=== PATIENT | male | born 1985 | race Caucasian/White ===

== ENCOUNTER 2016-08-27 05:23 | Emergency (ER) | payer BC ==
--- NOTE | 2016-08-27 06:52 | DIAGNOSTIC IMAGING REPORT ---
PROCEDURE: CT ABD/PELVIS WITH CONTRAST CLINICAL INDICATION: ABDOMINAL PAIN TECHNIQUE: 125 ml of Isovue 300 were injected intravenously and axial images were obtained of the entire abdomen and pelvis with sagittal and coronal reformations. COMPARISON: None. FINDINGS: ABDOMEN: Lung base are clear. Heart size is normal. Liver, gallbladder, pancreas, spleen, adrenal glands, kidneys (left parapelvic cyst) and aorta are normal. Fluid in the ascending colon with multiple nondilated fluid filled loops of small bowel which may be normal or represent enterocolitis. PELVIS: Normal appendix. There is no pelvic mass, inflammatory changes or free fluid. Osseous structures are unremarkable. IMPRESSION: 1. Findings suggestive of enterocolitis 2. Results discussed with Dr. Ortiz All CT scans at this facility use dose modulation, iterative reconstruction, and/or weight-based dosing when appropriate to reduce radiation dose to as low as reasonably achievable.
--- NOTE | 2016-08-27 07:00 | ED NURSING NOTES ---
Clinical Report - Nurses [facility] [place] [address] 08/27/2016 5:26 [id number] Triage time 05:Aug 27 2016. Acuity: LEVEL 3. Chief Complaint: ABDOMINAL PAIN, NAUSEA and DIARRHEA. 05:38 08/27/16. SEPSIS SCREEN: Sepsis Screen. Negative (no infection suspected/documented). JIL COMA SCORE: Jil Coma Scale: 15- eyes open spontaneously (4); best verbal response- oriented x 4 (5); best motor response- obeys commands (6). --05:38 Patricia Adam R.N. 05:31 08/27/16. BP: 133/75 (large adult cuff) taken on the right arm. HR: 77. RR: 18. O2 saturation: 100% on room air. Temp: 98.1 F (oral). Pain level now: 10/10. --05:38 Patricia Adam R.N. Weight: 104.3 kg stated. Height/Length: 71 inches Per Patient. BMI: 32.1. --05:37 Patricia Adam R.N. Medications None. --05:34 Patricia Adam R.N. Allergies Sulfa Antibiotics. --05:34 Patricia Adam R.N. History Arrived by private vehicle. Historian: patient. Onset. (Monday). He has had nausea and moderate, cramping, sharp, dull, intermittent abdominal pain. The pain is described as generalized and associated with nausea and diarrhea. He has had loose stools. This has occurred numerous times. It has been watery and has been associated with cramps. Last oral intake by patient was dinner. Treatment RN PEDIATRIC ICU: (Immodium 0200 today). SOCIAL HX: Smoker- current status unknown. Alcohol use; consumes one beer, liquor and wine. History of drug use: marijuana. Recently used drugs days ago. (2). No recent travel. No infectious disease exposure. No known contact with a sick individual. ABUSE ASSESSMENT: No report of abuse. --05:38 Patricia Adam R.N. PROBLEMS: no known problems. ADDITIONAL SURGERIES: Shoulder Surgery. --05:34 Patricia Adam R.N. Interventions ID band on patient. To treatment room. --05:38 Patricia Adam R.N. PHYSICAL ASSESSMENT 05:41 08/27/16. Ambulatory to room. Patient gowned. GENERAL / NEURO / PSYCH: Alert. Oriented X 4. Appears in pain. HEENT: Mucous membranes are pink. RESPIRATORY: Respirations not labored. Breath sounds within normal limits. CVS: Normal sinus rhythm noted. Capillary refill less than 2 seconds. GI / : The patient has had nausea. He has loose stools. This has occurred numerous times. Abdominal tenderness diffusely and in the upper and lower abdomen. Guarding present. Guarding present. Hyperactive bowel sounds in all quadrants. SKIN: Skin is warm. --05:41 Patricia Adam R.N. NURSING PROGRESS NOTES 05:40 08/27/2016 Site #1 started via IV in the left antecubital space with an 20g angiocath, with aseptic technique and good blood return; one attempt. Blood drawn: rainbow set. Labeled in the presence of the patient and sent to the lab. Saline lock flushed with 10 mL saline (Started by Treva MIRELES-Student, with Malik Murdock RN supervising). --05:50 Frank Murdock R.N. 05:41 08/27/16. The plan of care for this patient has been created. Monitoring of patient in place. Patient gowned. Head of bed elevated. Reassurance given. Two patient identifiers checked. Call light placed in reach. Side rails up x 1. Bed placed in lowest position. Brakes of bed on. Patient ready for evaluation- chart flagged and ED physician notified. --05:41 Patricia Adam R.N. 06:05 08/27/2016 Started bag #1 1000 mL IV Fluids IV NS (Saline); at 1000 mL/hr over 1 hour(s) via site #1 via dial-a-flow. Allergies verified and confirmed 5 rights. IV patency established. IV site checked: no pain, redness, or swelling. IV flushed thoroughly pre- and post-medication administration. --06:05 Patricia Adam R.N. 06:06 08/27/2016 Zofran (Ondansetron HCl) IVP 4 mg given over 1 minute(s) via site #1. Allergies verified and confirmed 5 rights. IV patency established. IV site checked: no pain, redness, or swelling. IV flushed thoroughly pre- and post-medication administration. IVP given by RN. --06:06 Patricia Adam R.N. 06:08 08/27/16. ( Patient doing fine, worried he will have to run to restroom, explained to patient how to disconnect self from monitor and where restroom is. He denied blanket for comfort measures). --06:08 Patricia Adam R.N. 06:06 08/27/16. BP: 132/75 (large adult cuff) taken on the right arm. HR: 74. RR: 16. O2 saturation: 99% on room air. Pain level now: 09/10. --06:08 Patricia Adam R.N. 06:29 08/27/2016 Zofran IVP Response: no adverse reaction pain is gone now. Symptoms have improved the patient feels better. --06:29 Patricia Adam R.N. Patient transported to radiology by stretcher with [employer]. (06:Aug 27 2016). --06:30 Patricia Adam R.N. Patient returned from radiology by stretcher with [employer]. (06:Aug 27 2016). --06:31 Patricia Adam R.N. 07:02 08/27/2016 Levaquin (Levofloxacin) PO Tablets 750 mg given. Allergies verified and confirmed 5 rights. --07:02 Patricia Adam R.N. 07:11 08/27/2016 IV Fluids IV NS Discontinued: bag #1 completed upon discharge. Total amount infused: 1000 mL. --07:11 Patricia Adam R.N. DISPOSITION / DISCHARGE 07:10 08/27/2016 Site #1 removed upon discharge. Bandaid applied. --07:10 Patricia Adam R.N. Departure time: 07:Aug 27 2016. Condition at departure: improved. No learning barriers present. Discharge instructions provided and reviewed with the patient. Reviewed medication(s) side effects, precautions, dosing and course information. Prescription(s) given to the patient. Patient verbalized understanding. Written instructions provided in Croatian. The patient was discharged by the physician. He was discharged home and accompanied by spouse. He left the Emergency Department ambulatory and via private vehicle. Spouse driving. --07:10 Patricia Adam R.N. 07:07 08/27/16. BP: 129/71 (large adult cuff) taken on the right arm. HR: 70. RR: 18. O2 saturation: 99% on room air. Temp: 97.5 F (oral). Pain level now: 08/10. --07:10 Patricia Adam R.N. Locked/Released at 08/27/2016 7:11 by Patricia Adam R.N.
--- NOTE | 2016-08-27 07:00 | ED ORDER SUMMARY ---
..... Patient: KIMBER PALOMINO OrderSheet [facility] VisitID: [id number] [place] [address] 30y, M Registration Date/Time: 08/27/2016 ORDER SHEET Weight: 104.3 kg (stated) Allergies: Sulfa Antibiotics GENERAL ORDERS: CT Abd/Pel w Cont (No) (N/A) Urgent (05:53 08/27/2016 Gretchen Amado) (Ack 5:59 CHagerty ER Pocket Setter) (6:34 JSanders R.N.) CBC w Diff Urgent (05:53 08/27/2016 Gretchen Amado) (Ack 5:59 Jb ER Pocket Setter) (6:00 JSanders R.N.) CMP Urgent (05:53 08/27/2016 Gretchen Amado) (Ack 5:59 CHaglynda ER Pocket Setter) (6:00 JSanders R.N.) UA-Culture if indicated Urgent (05:53 08/27/2016 Gretchen Amado) (Ack 5:59 CHaglynda ER Pocket Setter) (6:00 JSanders R.N.) Lipase Urgent (05:53 08/27/2016 Gretchen Amado) (Ack 5:59 CHagerty ER Pocket Setter) (6:00 JSanders R.N.) Pulse oximeter (05:53 08/27/2016 Gretchen Amado) (6:00 JSanders R.N.) MEDICATION ORDERS: Levaquin PO 750 mg (NOW) (06:51 08/27/2016 Gretchen Amado) (7:02 JSanders R.N.) IV FLUIDS: IV NS : initial bolus 1000 mL (1000 mL/hr), then none - for X1 (NOW) (05:52 08/27/2016 Gretchen Amado) (Ack 6:00 JSanders R.N.) (6:05 JSanders R.N.) Zofran IV 4 mg (NOW) (05:53 08/27/2016 Gretchen Amado) (Ack 6:00 JSanders R.N.) (6:06 JSanders R.N.) ORDER SHEET NOTES: [Electronically signed by Patricia Adam R.N. (07:11 08/27/2016)] [Electronically signed by Neymar Ortiz Dr. (06:09 08/30/2016)] [Electronically locked/signed by Patricia Adam R.N. (07:11 08/27/2016)]
--- NOTE | 2016-08-27 07:00 | ED NURSING NOTES ---
Clinical Report - Nurses [facility] [place] [address] 08/27/2016 5:26 [id number] TRI[facility] Triage time 05:Aug 27 2016. Acuity: LEVEL 3. Chief Complaint: ABDOMINAL PAIN, NAUSEA and DIARRHEA. 05:38 08/27/16. SEPSIS SCREEN: Sepsis Screen. Negative (no infection suspected/documented). JIL COMA SCORE: Jil Coma Scale: 15- eyes open spontaneously (4); best verbal response- oriented x 4 (5); best motor response- obeys commands (6). --05:38 Patricia Adam R.N. 05:31 08/27/16. BP: 133/75 (large adult cuff) taken on the right arm. HR: 77. RR: 18. O2 saturation: 100% on room air. Temp: 98.1 F (oral). Pain level now: 10/10. --05:38 Patricia Adam R.N. Weight: 104.3 kg stated. Height/Length: 71 inches Per Patient. BMI: 32.1. --05:37 Patricia Adam R.N. Medications None. --05:34 Patricia Adam R.N. Allergies Sulfa Antibiotics. --05:34 Patricia Adam R.N. History Arrived by private vehicle. Historian: patient. Onset. (Monday). He has had nausea and moderate, cramping, sharp, dull, intermittent abdominal pain. The pain is described as generalized and associated with nausea and diarrhea. He has had loose stools. This has occurred numerous times. It has been watery and has been associated with cramps. Last oral intake by patient was dinner. Treatment PUBLIC HEALTH DIRECTOR: (Immodium 0200 today). SOCIAL HX: Smoker- current status unknown. Alcohol use; consumes one beer, liquor and wine. History of drug use: marijuana. Recently used drugs days ago. (2). No recent travel. No infectious disease exposure. No known contact with a sick individual. ABUSE ASSESSMENT: No report of abuse. --05:38 Patricia Adam R.N. PROBLEMS: no known problems. ADDITIONAL SURGERIES: Shoulder Surgery. --05:34 Patricia Adam R.N. Interventions ID band on patient. To treatment room. --05:38 Patricia Adam R.N. PHYSICAL ASSESSMENT 05:41 08/27/16. Ambulatory to room. Patient gowned. GENERAL / NEURO / PSYCH: Alert. Oriented X 4. Appears in pain. HEENT: Mucous membranes are pink. RESPIRATORY: Respirations not labored. Breath sounds within normal limits. CVS: Normal sinus rhythm noted. Capillary refill less than 2 seconds. GI / : The patient has had nausea. He has loose stools. This has occurred numerous times. Abdominal tenderness diffusely and in the upper and lower abdomen. Guarding present. Guarding present. Hyperactive bowel sounds in all quadrants. SKIN: Skin is warm. --05:41 Patricia Adam R.N. NURSING PROGRESS NOTES 05:40 08/27/2016 Site #1 started via IV in the left antecubital space with an 20g angiocath, with aseptic technique and good blood return; one attempt. Blood drawn: rainbow set. Labeled in the presence of the patient and sent to the lab. Saline lock flushed with 10 mL saline (Started by Treva MIRELES-Student, with Malik Murdock RN supervising). --05:50 Frank Murdock R.N. 05:41 08/27/16. The plan of care for this patient has been created. Monitoring of patient in place. Patient gowned. Head of bed elevated. Reassurance given. Two patient identifiers checked. Call light placed in reach. Side rails up x 1. Bed placed in lowest position. Brakes of bed on. Patient ready for evaluation- chart flagged and ED physician notified. --05:41 Patricia Adam R.N. 06:05 08/27/2016 Started bag #1 1000 mL IV Fluids IV NS (Saline); at 1000 mL/hr over 1 hour(s) via site #1 via dial-a-flow. Allergies verified and confirmed 5 rights. IV patency established. IV site checked: no pain, redness, or swelling. IV flushed thoroughly pre- and post-medication administration. --06:05 Patricia Adam R.N. 06:06 08/27/2016 Zofran (Ondansetron HCl) IVP 4 mg given over 1 minute(s) via site #1. Allergies verified and confirmed 5 rights. IV patency established. IV site checked: no pain, redness, or swelling. IV flushed thoroughly pre- and post-medication administration. IVP given by RN. --06:06 Patricia Adam R.N. 06:08 08/27/16. ( Patient doing fine, worried he will have to run to restroom, explained to patient how to disconnect self from monitor and where restroom is. He denied blanket for comfort measures). --06:08 Patricia Adam R.N. 06:06 08/27/16. BP: 132/75 (large adult cuff) taken on the right arm. HR: 74. RR: 16. O2 saturation: 99% on room air. Pain level now: 09/10. --06:08 Patricia Adam R.N. 06:29 08/27/2016 Zofran IVP Response: no adverse reaction pain is gone now. Symptoms have improved the patient feels better. --06:29 Patricia Adam R.N. Patient transported to radiology by stretcher with [employer]. (06:Aug 27 2016). --06:30 Patricia Adam R.N. Patient returned from radiology by stretcher with [employer]. (06:Aug 27 2016). --06:31 Patricia Adam R.N. 07:02 08/27/2016 Levaquin (Levofloxacin) PO Tablets 750 mg given. Allergies verified and confirmed 5 rights. --07:02 Patricia Adam R.N. 07:11 08/27/2016 IV Fluids IV NS Discontinued: bag #1 completed upon discharge. Total amount infused: 1000 mL. --07:11 Patricia Adam R.N. DISPOSITION / DISCHARGE 07:10 08/27/2016 Site #1 removed upon discharge. Bandaid applied. --07:10 Patricia Adam R.N. Departure time: 07:Aug 27 2016. Condition at departure: improved. No learning barriers present. Discharge instructions provided and reviewed with the patient. Reviewed medication(s) side effects, precautions, dosing and course information. Prescription(s) given to the patient. Patient verbalized understanding. Written instructions provided in Albanian. The patient was discharged by the physician. He was discharged home and accompanied by spouse. He left the Emergency Department ambulatory and via private vehicle. Spouse driving. --07:10 Patricia Adam R.N. 07:07 08/27/16. BP: 129/71 (large adult cuff) taken on the right arm. HR: 70. RR: 18. O2 saturation: 99% on room air. Temp: 97.5 F (oral). Pain level now: 08/10. --07:10 Patricia Adam R.N. Locked/Released at 08/27/2016 7:11 by Patricia Adam R.N.
--- NOTE | 2016-08-27 07:00 | ED CLINICAL REPORT ---
Clinical Report - Physicians/Mid Levels [facility] [address] [place] [address] 08/27/2016 5:26 Patient: KIMBER PALOMINO Time Seen: 0535; initial patient contact. Arrived- By private vehicle. Historian- patient. HISTORY OF PRESENT ILLNESS Chief Complaint: VOMITING and DIARRHEA. This started about a week and is still present (unchanged). It was abrupt in onset and has been constant but is not gone now. No recent travel. He has had nausea, vomiting and diarrhea. No black stools, bloody stools, constipation, flank pain or history of possible bad food exposure. No known contact with a sick individual. He has had moderate, crampy, colicky abdominal pain. The pain is described as generalized. No radiation of abdominal pain to the back. Has not recently been camping or on antibiotics. The illness is described as severe. Similar symptoms previously: None. Recent medical care: The patient was seen recently in a clinic (states he was told his C. diff and giardia was negative). REVIEW OF SYSTEMS No skin rash. All systems otherwise negative, except as recorded above. PAST HISTORY See nurses notes. Problems: no known problems. Medications: None. Allergies: Sulfa Antibiotics. SOCIAL HISTORY Never smoker. History of occasional drug use: marijuana. No alcohol use. No recent travel. Is a local resident. ADDITIONAL NOTES The nursing notes have been reviewed. PHYSICAL EXAM Vital Signs: 08/27/2016 05:31 BP: 133/75. HR: 77. RR: 18. O2 saturation: 100%. Temp: 98.1 F. Pain level now: 7/10. Blood pressure normal. Oxygen saturation normal. Appearance: Alert. Oriented X3. No acute distress. (Well-developed, well-nourished. Pleasant, cooperative, not nontoxic). Eyes: Pupils equal, round and reactive to light. Eyes normal inspection. No conjunctival findings, pale conjunctivae or scleral icterus. ENT: Ears normal. Nose normal. Pharynx normal. Neck: Normal inspection. Neck supple. CVS: Normal heart rate and rhythm. Heart sounds normal. Pulses normal. Respiratory: No respiratory distress. Breath sounds normal. No rales, rhonchi or wheezes. Abdomen: Soft and nontender. (Hyperactive bowel sounds in all 4 quadrants. negative Ha's. No tenderness at McBurney's. No rebound or guarding. No masses.). Skin: Skin warm and dry. Normal skin color. No rash. Normal skin turgor. Extremities: Extremities exhibit normal ROM. No lower extremity edema. LABS, X-RAYS, AND EKG Laboratory Tests: UA-Culture if indicated: (TRACIE: 08/27/2016 05:35) ( [facility] 08/27/2016 06:09) Final results Test Result Flag Units (Reference) URINE COLOR YELLOW URINE APPEARANCE CLEAR URINE GLUCOSE NEGATIVE (NEGATIVE) URINE BILIRUBIN NEGATIVE (NEGATIVE) URINE KETONE TRACE (NEGATIVE) URINE SPECIFIC GRAVITY 1.010 (1.010-1.030) URINE PH 6.0 (5.0-8.0) URINE PROTEIN NEGATIVE (NEGATIVE) URINE UROBILINOGEN 0.2 EU/dL (0.2-1.0) URINE NITRITE NEGATIVE (NEGATIVE) URINE BLOOD NEGATIVE (NEGATIVE) URINE LEUK ESTERASE NEGATIVE (NEGATIVE) URINE RBC 0-1 rbc/hpf (0-1) URINE WBC 0-1 wbc/hpf (0-1) URINE EPITHELIAL CELLS 0-1 EPI/hpf (0-5) URINE BACTERIA NONE SEEN (NONE SEEN) URINE COMMENT CULT NOT INDICATED URINE CULTURES ARE SET-UP BASED ON THE FOLLOWING CRITERIA:POSITIVE NITRITEPOSITIVE LEUKOCYTE ESTERASEGREATER THAN 10 WHITE BLOOD CELLSMODERATE (2+) OR GREATER BACTERIA CBC w Diff: (TRACIE: 08/27/2016 05:45) ( [facility] 08/27/2016 06:02) Final results Test Result Flag Units (Reference) WHITE BLOOD COUNT 7.2 K/uL (4.5-11.5) RED BLOOD COUNT 5.46 M/uL (4.50-5.90) HEMOGLOBIN 15.8 gm/dL (13.5-17.5) HEMATOCRIT 47.4 % (41.0-53.0) MEAN CELL VOLUME 87 fL (80-100) MEAN CORPUSCULAR HGB 29 pg (26-34) MEAN CORPUSCULAR HGB CONC 33 g/dL (31-37) RED CELL DISTRIBUTION WIDTH 14.0 % (11.6-14.8) PLATELET COUNT 221 K/uL (150-400) NEUTROPHIL % 61.9 % (50-75) LYMPH % 18.4 L % (25-40) MONO % 17.3 H % (3-14) EOSINOPHIL % 2.1 % (0-4) BASOPHIL % 0.3 % (0-2) CMP: (TRACIE: 08/27/2016 05:45) ( MsgRcvd 08/27/2016 06:12) Final results Test Result Flag Units (Reference) GLUCOSE 87 mg/dL (70-110) BUN 17 mg/dL (7-18) CREATININE 1.2 mg/dL (0.6-1.3) Estimated GFR >60 mL/min Estimated GFR- >60 mL/min Note: Persistent reduction over 3 months in eGFR<60 mL/min/1.73 m2 defines CKD. Patients with eGFR values>=60 mL/min/1.73 m2 may also have CKD if evidence ofpersistent proteinuria. Additional information may be foundat www.kidney.org. SODIUM 138 mmol/L (136-145) POTASSIUM 4.0 mmol/L (3.5-5.1) CHLORIDE 103 mmol/L (98-107) CARBON DIOXIDE 24 mmol/L (21-32) CALCIUM 8.4 L mg/dL (8.5-10.1) TOTAL PROTEIN 7.2 g/dL (6.4-8.2) ALBUMIN 3.4 g/dL (3.3-5.0) BILIRUBIN, TOTAL 0.6 mg/dL (0.0-1.0) ALKALINE PHOSPHATASE 78 U/L (46-116) AST (SGOT) 49 H U/L (15-37) ALT (SGPT) 75 U/L (12-78) LIPASE 156 U/L (73-393) . PROGRESS AND PROCEDURES Course of Care: The patient is a pleasant 30-year-old male presenting for evaluation of nausea vomiting and diarrhea. Patient has a nonfocal abdominal examination. Did not feel patient has a surgical abdomen. Patient will be treated with pain medication as well as hydration and nausea medications and have laboratory studies drawn including a urinalysis. If the patient's abdominal examination changes or worsens throughout his stay here in the emergency department, will consider imaging however do not feel that this would foreign exchange position clerk at this time. Would be concerned for exposing patient to excessive radiation. Patient is agreeable to the treatment and plan. The patient's workup was unremarkable for the findings above. No significant abnormalities noted. Patient without elevation in white blood cell count At 7.2. H&H is normal. Liver enzymes and lipase are also noted to be negative. Because the patient's negative workup here in the emergency department, do not feel patient requires admission to the hospital for the emergency department workup/evaluation. Symptoms had significantly improved since being here in the emergency department. At this time we'll managed conservatively with symptom control. Had a discussion with patient in regards his workup here in the emergency department including diagnosis, home care, follow-up, and return precautions. All questions have been answered. The patient expressed understanding of these instructions and was agreeable to them. Prior to patient's departure from his emergency department his repeat abdominal examination continues to be benign. Do not feel patient has a surgical abdomen. Disposition: Discharged. Condition: good. CLINICAL IMPRESSION Vomiting with nausea. Diarrhea (acute). Acute generalized abdominal pain. INSTRUCTIONS Warnings: GENERAL WARNINGS: Return or contact your physician immediately if your condition worsens or changes unexpectedly, if not improving as expected, or if other problems arise. SPECIFICALLY, return if you develop pain, fever, vomiting, the inability to keep fluids down, blood in vomitus, blood in diarrhea, fainting or lightheadedness. Your Current Medications: CONTINUE TAKING THE FOLLOWING MEDICATIONS: None*. Prescription Medications: Zofran (orally disintegrating tablets) 4 mg: take 1 orally every 8 hours as needed for nausea and vomiting. Dispense ten (10). No refill. Substitution is permissible. Cipro 500 mg: take 1 tab orally every 12 hours for 5 days. No refills. Substitution is permissible. (disp 10 tabs) Follow-up: Return to the emergency department as needed. Follow up with your doctor in three days. Reason for referral: recheck today's concerns. Summary of care provided to patient via paper. Screening today revealed the patient's blood pressure to be in the normal range. The patient should follow up with a primary care provider for blood pressure management. Understanding of the discharge instructions verbalized by patient. (Electronically signed by Neymar Ortiz Dr. 08/30/2016 6:09)
--- NOTE | 2016-08-27 07:00 | ED ORDER SUMMARY ---
..... Patient: KIMBER PALOMINO OrderSheet [facility] VisitID: [id number] [place] [address] 30y, M Registration Date/Time: 08/27/2016 ORDER SHEET Weight: 104.3 kg (stated) Allergies: Sulfa Antibiotics GENERAL ORDERS: CT Abd/Pel w Cont (No) (N/A) Urgent (05:53 08/27/2016 Gretchen Amado) (Ack 5:59 CHagerty ER Toaster Element Repairer) (6:34 JSanders R.N.) CBC w Diff Urgent (05:53 08/27/2016 Gretchen Amado) (Ack 5:59 Jb ER Toaster Element Repairer) (6:00 JSanders R.N.) CMP Urgent (05:53 08/27/2016 Gretchen Amado) (Ack 5:59 CHaglynda ER Toaster Element Repairer) (6:00 JSanders R.N.) UA-Culture if indicated Urgent (05:53 08/27/2016 Gretchen Amado) (Ack 5:59 CHaglnyda ER Toaster Element Repairer) (6:00 JSanders R.N.) Lipase Urgent (05:53 08/27/2016 Gretchen Amado) (Ack 5:59 CHagerty ER Toaster Element Repairer) (6:00 JSanders R.N.) Pulse oximeter (05:53 08/27/2016 Gretchen Amado) (6:00 JSanders R.N.) MEDICATION ORDERS: Levaquin PO 750 mg (NOW) (06:51 08/27/2016 Gretchen Amado) (7:02 JSanders R.N.) IV FLUIDS: IV NS : initial bolus 1000 mL (1000 mL/hr), then none - for X1 (NOW) (05:52 08/27/2016 Gretchen Amado) (Ack 6:00 JSanders R.N.) (6:05 JSanders R.N.) Zofran IV 4 mg (NOW) (05:53 08/27/2016 Gretchen Amado) (Ack 6:00 JSanders R.N.) (6:06 JSanders R.N.) ORDER SHEET NOTES: [Electronically signed by Patricia Adam R.N. (07:11 08/27/2016)] [Electronically signed by Neymar Ortiz Dr. (06:09 08/30/2016)] [Electronically locked/signed by Patricia Adam R.N. (07:11 08/27/2016)]
--- NOTE | 2016-08-30 06:09 | ED MED RECONCILIATION SUMMARY ---
Patient: KIMBER PALOMINO Medication Reconciliation Report [facility] VisitID: [id number] [address] [place] [address] 30y, M Registration Date/Time: 08/27/2016 Weight: 104.3 kg Height/Length: 71 in. BMI: 32.1 ALLERGIES: Sulfa Antibiotics The patient's Home Medications are listed below: NONE. The source(s) of the original Home Medication information: Not obtained. The following Medications were given to the patient in the Emergency Department: IV NS IV Fluids bolus 0, then 1000 mL/hr, administered: 08/27/2016 6:05:00 AM Zofran [IVP] IVP 4 mg, administered: 08/27/2016 6:06:00 AM Levaquin [PO] PO 750 mg, administered: 08/27/2016 7:02:00 AM The following Medications were prescribed to the patient: Zofran (orally disintegrating tablets) 4 mg: take 1 orally every 8 hours as needed for nausea and vomiting. Dispense ten (10). No refill. Substitution is permissible. -- Neymar Ortiz Dr. Cipro 500 mg: take 1 tab orally every 12 hours for 5 days. No refills. Substitution is permissible.(disp 10 tabs) -- Neymar Ortiz Dr.
--- NOTE | 2016-08-30 06:09 | ED DISCHARGE INSTRUCTIONS ---
Patient: KIMBER PALOMINO General Instructions [facility] VisitID: [id number] [place] [address] 30y, M Registration Date/Time: 08/27/2016 Vomiting with nausea. Diarrhea (acute). Acute generalized abdominal pain. INSTRUCTIONS Warnings: GENERAL WARNINGS: Return or contact your physician immediately if your condition worsens or changes unexpectedly, if not improving as expected, or if other problems arise. SPECIFICALLY, return if you develop pain, fever, vomiting, the inability to keep fluids down, blood in vomitus, blood in diarrhea, fainting or lightheadedness. Your Current Medications: CONTINUE TAKING THE FOLLOWING MEDICATIONS: None*. Prescription Medications: Zofran (orally disintegrating tablets) 4 mg: take 1 orally every 8 hours as needed for nausea and vomiting. Dispense ten (10). No refill. Substitution is permissible. Cipro 500 mg: take 1 tab orally every 12 hours for 5 days. No refills. Substitution is permissible. (disp 10 tabs) Follow-up: Return to the emergency department as needed. Follow up with your doctor in three days. Reason for referral: recheck today's concerns. Summary of care provided to patient via paper. Screening today revealed the patient's blood pressure to be in the normal range. The patient should follow up with a primary care provider for blood pressure management. Understanding of the discharge instructions verbalized by patient. ADDITIONAL INFORMATION Vomiting [6Yr-Adult] Vomiting is a common symptom that may be due to different causes. These include gastroenteritis ("stomach flu"), food poisoning and gastritis. There are other more serious causes of vomiting which may be hard to diagnose early in the illness. Therefore, it is important to watch for the warning signs listed below. The main danger from repeated vomiting is dehydration. This is due to excess loss of water and minerals from the body. When this occurs, body fluids must be replaced. Home Care: If symptoms are severe, rest at home for the next 24 hours. You may use acetaminophen (Tylenol) or ibuprofen (Motrin, Advil) to control fever, unless another medicine was prescribed. [NOTE : If you have chronic liver or kidney disease or ever had a stomach ulcer or GI bleeding, talk with your doctor before using these medicines.] (Aspirin should never be used in anyone under 18 years of age who is ill with a fever. It may cause severe liver damage.) Avoid tobacco and alcohol use, which may worsen your symptoms. If medicines for vomiting were prescribed, take as directed. Once vomiting stops, then follow these guidelines: During The First 12-24 Hours follow the diet below: FRUIT JUICES: Apple, grape juice, clear fruit drinks, and electrolyte replacement drinks. BEVERAGES: Soft drinks without caffeine; mineral water (plain or flavored), decaffeinated tea and coffee. SOUPS: Clear broth, consomm and bouillon DESSERTS: Plain gelatin, popsicles and fruit juice bars. As you feel better, you may add 6-8 ounces of yogurt per day. During The Next 24 Hours you may add the following to the above: Hot cereal, plain toast, bread, rolls, crackers Plain noodles, rice, mashed potatoes, chicken noodle or rice soup Unsweetened canned fruit (avoid pineapple), bananas Limit caffeine and chocolate. No spices or seasonings except salt. During The Next 24 Hours Gradually resume a normal diet, as you feel better and your symptoms lessen. Follow Up with your doctor as advised if you are not improving over the next 2-3 days. Get Prompt Medical Attention if any of the following occur: Constant right-sided lower abdominal pain or increasing general abdominal pain Continued vomiting (unable to keep liquids down) for 24 hours Frequent diarrhea (more than 5 times a day); blood (red or black color) or mucus in diarrhea Reduced urine output or extreme thirst Weakness, dizziness or fainting Unusually drowsy or confused Fever of 100.4F (38C) oral or higher, not better with fever medication Yellow color of the eyes or skin Diarrhea, Uncertain Cause (Adult, Report Pending) Diarrhea has several possible causes. Commonstomach fluis caused by a virus. Food poisoning, bacteria or parasites are other causes for diarrhea. Only diarrhea caused by bacteria or parasites requires treatment with an antibiotic. Diarrhea from a virus or food poisoning improves with simple home treatment. A stool sample is needed to make the diagnosis of an infection with bacteria or parasites. Up to three stool specimens may be required to diagnose This may take up to two days to get the result. It may be necessary to wait until the stool test is complete to make the diagnosis and select the best antibiotic to prescribe. Home Care: If symptoms are severe, rest at home for the next 24 hours or until you are feeling better. You may use acetaminophen (Tylenol) or ibuprofen (Motrin, Advil) to control fever, unless another medicine was prescribed. [NOTE: If you have chronic liver or kidney disease or ever had a stomach ulcer or GI bleeding, talk with your doctor before using these medicines.] (Aspirin should never be used in anyone under 18 years of age who is ill with a fever. It may cause severe liver damage.) Avoid tobacco, caffeine and alcohol, which may worsen your symptoms. If anti-diarrhea medicine was prescribed, take this only as directed. Sometimes anti-diarrhea medicine can make your condition worse if the cause is an infectious diarrhea. Therefore, anti-diarrhea medicine should not be taken for this condition unless advised by your doctor. During The First 12-24 Hours follow the diet below: BEVERAGES: Sport drinks like Gatorade, soft drinks without caffeine; angie cornelia, mineral water (plain or flavored), decaffeinated tea and coffee. SOUPS: Clear broth, consomm and bouillon DESSERTS: Plain gelatin (Jell-O), popsicles and fruit juice bars. During The Next 24 Hours you may add the following to the above: Hot cereal, plain toast, bread, rolls, crackers Plain noodles, rice, mashed potatoes, chicken noodle or rice soup Unsweetened canned fruit (avoid pineapple), bananas Limit fat intake to less than 15 grams per day by avoiding margarine, butter, oils, mayonnaise, sauces, gravies, fried foods, peanut butter, meat, poultry and fish. Limit fiber; avoid raw or cooked vegetables, fresh fruits (except bananas) and bran cereals. Limit caffeine and chocolate. No spices or seasonings except salt. During The Next 24 Hours Gradually resume a normal diet, as you feel better and your symptoms lessen. Follow Up with your doctor or as advised if you are not improving over the next two days. If you were asked to bring a specimen from home, bring the sample on the day of collection. You may call in 2 days (or as directed) for the results. Get Prompt Medical Attention if any of the following occur: Increasing abdominal pain or constant lower right abdominal pain Continued vomiting (unable to keep liquids down) Frequent diarrhea (more than 5 times a day) Blood in vomit or stool (black or red color) Reduced oral intake Dark urine, reduced urine output Weakness, dizziness, fainting Drowsiness, confusion, stiff neck or seizure Fever of 100.4F (38C) oral or higher, not better with fever medication New rash Abdominal Pain,Uncertain Cause [Male] Based on your visit today, the exact cause of your abdominalpain is not clear. Your exam and tests do not indicate a dangerous cause at this time. However, the signs of a serious problem may take more time to appear. Although your evaluation was reassuring today, sometimes early in the course of many conditions, exam and lab tests can appear normal. Therefore, it is important for you to watch for any new symptoms or worsening of your condition. Causes It may not be obvious what caused your symptoms. Pay attention to things that do seem to make your symptoms worse or better and discuss this with your doctor when you follow up. Diagnosis The evaluation of abdominal pain in the emergency department may onlyrequire an exam by the doctor or it may include blood, urine or imaging studies, depending on many factors. Sometimes exams and tests can identify a cause but in many cases, a clear cause is not found. Further testing at follow up visits may help to suggest a clear diagnosis. Home Care Rest as much as possible until your next exam. Try to avoid any medications (unless otherwise directed by your doctor), foods, activities, or other factors that you may have contributed to your symptoms. Try to eat foods that you know that you have tolerated well in the past. Certain diets may be recommended for some conditions that cause abdominal pain. However, since the cause of your symptoms may not be clear, discuss your diet more with your primary care provider or specialist for further recommendations. Eating several small meals per day as opposed to 2 or 3 larger meals may help. Monitor closely for anything that may make your symptoms worse or better. Pay close attention to symptoms below that may indicate worsening of your condition. Follow Up and Precautions See your doctoras instructed or sooneror if your symptoms are not improving.In some cases, you may need more testing. When to Seek Medical Attention Contact your doctor or see medical attention ifany of the following occur: Pain is becoming worse You are unable to take your medications due to excessive vomiting Swelling of the abdomen Fever of 100.4F (38C) or higher, or as directed by your health care provider Blood in vomit or bowel movements (dark red or black color) Jaundice (yellow color of eyes and skin) New onset of weakness, dizziness or fainting New onset of chest, arm, back, neck or jaw pain Ondansetron Oral disintegrating tablet What is this medicine? ONDANSETRON (on ARELY se serenity) is used to treat nausea and vomiting caused by chemotherapy. It is also used to prevent or treat nausea and vomiting after surgery. How should I use this medicine? These tablets are made to dissolve in the mouth. Do not try to push the tablet through the foil backing. With dry hands, peel away the foil backing and gently remove the tablet. Place the tablet in the mouth and allow it to dissolve, then swallow. While you may take these tablets with water, it is not necessary to do so. Talk to your middle school combination teacher regarding the use of this medicine in children. Special care may be needed. What side effects may I notice from receiving this medicine? Side effects that you should report to your doctor or health child care development specialist as soon as possible: allergic reactions like skin rash, itching or hives, swelling of the face, lips, or tongue breathing problems dizziness fast or irregular heartbeat feeling faint or lightheaded, falls fever and chills swelling of the hands and feet tightness in the chest Side effects that usually do not require medical attention (report to your doctor or health child care development specialist if they continue or are bothersome): constipation or diarrhea headache What may interact with this medicine? Do not take this medicine with any of the following medications: -apomorphine -cisapride -dofetilide -dronedarone -pimozide -thioridazine -ziprasidone This medicine may also interact with the following medications: -carbamazepine -phenytoin -rifampicin -tramadol -other medicines that prolong the QT interval (cause an abnormal heart rhythm) What if I miss a dose? If you miss a dose, take it as soon as you can. If it is almost time for your next dose, take only that dose. Do not take double or extra doses. Where should I keep my medicine? Keep out of the reach of children. Store between 2 and 30 degrees C (36 and 86 degrees F). Throw away any unused medicine after the expiration date. What should I tell my health care provider before I take this medicine? They need to know if you have any of these conditions: heart disease history of irregular heartbeat liver disease low levels of magnesium or potassium in the blood an unusual or allergic reaction to ondansetron, granisetron, other medicines, foods, dyes, or preservatives or trying to get breast-feeding What should I watch for while using this medicine? Check with your doctor or health child care development specialist as soon as you can if you have any sign of an allergic reaction. Ciprofloxacin Hydrochloride Oral tablet What is this medicine? CIPROFLOXACIN (sip placido FLOX a sin) is a quinolone antibiotic. It is used to treat certain kinds of bacterial infections. It will not work for colds, flu, or other viral infections. How should I use this medicine? Take this medicine by mouth with a glass of water. Follow the directions on the prescription label. Take your medicine at regular intervals. Do not take your medicine more often than directed. Take all of your medicine as directed even if you think your are better. Do not skip doses or stop your medicine early. You can take this medicine with food or on an empty stomach. It can be taken with a meal that contains dairy or calcium, but do not take it alone with a dairy product, like milk or yogurt or calcium-fortified juice. A special MedGuide will be given to you by the pharmacist with each prescription and refill. Be sure to read this information carefully each time. Talk to your middle school combination teacher regarding the use of this medicine in children. Special care may be needed. What side effects may I notice from receiving this medicine? Side effects that you should report to your doctor or health child care development specialist as soon as possible: - allergic reactions like skin rash, itching or hives, swelling of the face, lips, or tongue - breathing problems - confusion, nightmares or hallucinations - feeling faint or lightheaded, falls - irregular heartbeat - joint, muscle or tendon pain or swelling - pain or trouble passing urine -persistent headache with or without blurred vision - redness, blistering, peeling or loosening of the skin, including inside the mouth - seizure - unusual pain, numbness, tingling, or weakness Side effects that usually do not require medical attention (report to your doctor or health child care development specialist if they continue or are bothersome): - diarrhea - nausea or stomach upset - white patches or sores in the mouth What may interact with this medicine? Do not take this medicine with any of the following medications: cisapride droperidol terfenadine tizanidine This medicine may also interact with the following medications: antacids caffeine cyclosporin didanosine (ddI) buffered tablets or powder medicines for diabetes medicines for inflammation like ibuprofen, naproxen methotrexate multivitamins omeprazole phenytoin probenecid sucralfate theophylline warfarin What if I miss a dose? If you miss a dose, take it as soon as you can. If it is almost time for your next dose, take only that dose. Do not take double or extra doses. Where should I keep my medicine? Keep out of the reach of children. Store at room temperature below 30 degrees C (86 degrees F). Keep container tightly closed. Throw away any unused medicine after the expiration date. What should I tell my health care provider before I take this medicine? They need to know if you have any of these conditions: -bone problems -cerebral disease -joint problems -irregular heartbeat -kidney disease -liver disease -myasthenia gravis -seizure disorder -tendon problems -an unusual or allergic reaction to ciprofloxacin, other antibiotics or medicines, foods, dyes, or preservatives - or trying to get -breast-feeding What should I watch for while using this medicine? Tell your doctor or health child care development specialist if your symptoms do not improve. Do not treat diarrhea with over the counter products. Contact your doctor if you have diarrhea that lasts more than 2 days or if it is severe and watery. You may get drowsy or dizzy. Do not drive, use machinery, or do anything that needs mental alertness until you know how this medicine affects you. Do not stand or sit up quickly, especially if you are an older patient. This reduces the risk of dizzy or fainting spells. This medicine can make you more sensitive to the sun. Keep out of the sun. If you cannot avoid being in the sun, wear protective clothing and use sunscreen. Do not use sun lamps or tanning beds/booths. Avoid antacids, aluminum, calcium, iron, magnesium, and zinc products for 6 hours before and 2 hours after taking a dose of this medicine. You have been given the following additional information: Vomiting (6Y-Adult) Diarrhea, Unk Cause (Adult) Report Pendg Abdominal Pain, Unknown Cause, (Male) Ondansetron Oral disintegrating tablet Ciprofloxacin Hydrochloride Oral tablet (Electronically signed by Neymar Ortiz Dr. 08/30/2016 6:09)
--- NOTE | 2016-08-30 06:09 | ED MAR SUMMARY ---
..... Medication Administration Record [facility] [address] [place] [address] Patient: KIMBER PALOMINO Visit ID: [id number] 30y, M Weight: 104.3 kg Height/Length: 71 in BMI: 32.1 ALLERGIES: Sulfa Antibiotics Start 06:05 08/27/2016 Patricia Adam R.N., Stop 07:11 08/27/2016 Patricia Adam R.N. Medication Administered: IV NS (SALINE), Dose: IV Fluids over 1 hour(s), Rate: 1000 mL/hr, Dispensed: 1000 mL bag, Site: #1 left AC. Medication Ordered: IV NS : initial bolus 1000 mL (1000 mL/hr), then none - for X1 (NOW). Given 06:06 08/27/2016 Patricia Adam R.N. Medication Administered: ZOFRAN [IVP] (ONDANSETRON HCL), Dose: 4 mg IVP over 1 minute(s), Site: #1 left AC. Medication Ordered: Zofran IV 4 mg (NOW). Given 07:02 08/27/2016 Patricia Adam R.N. Medication Administered: LEVAQUIN [PO] (LEVOFLOXACIN), Dose: 750 mg Tablets PO. Medication Ordered: Levaquin PO 750 mg (NOW).
--- NOTE | 2016-08-30 06:09 | ED MAR SUMMARY ---
..... Medication Administration Record [facility] [address] [place] [address] Patient: KIMBER PALOMINO Visit ID: [id number] 30y, M Weight: 104.3 kg Height/Length: 71 in BMI: 32.1 ALLERGIES: Sulfa Antibiotics Start 06:05 08/27/2016 Patricia Adam R.N., Stop 07:11 08/27/2016 Patricia Adam R.N. Medication Administered: IV NS (SALINE), Dose: IV Fluids over 1 hour(s), Rate: 1000 mL/hr, Dispensed: 1000 mL bag, Site: #1 left AC. Medication Ordered: IV NS : initial bolus 1000 mL (1000 mL/hr), then none - for X1 (NOW). Given 06:06 08/27/2016 Patricia Adam R.N. Medication Administered: ZOFRAN [IVP] (ONDANSETRON HCL), Dose: 4 mg IVP over 1 minute(s), Site: #1 left AC. Medication Ordered: Zofran IV 4 mg (NOW). Given 07:02 08/27/2016 Patricia Adam R.N. Medication Administered: LEVAQUIN [PO] (LEVOFLOXACIN), Dose: 750 mg Tablets PO. Medication Ordered: Levaquin PO 750 mg (NOW).
--- NOTE | 2016-08-30 06:09 | ED MED RECONCILIATION SUMMARY ---
Patient: KIMBER PALOMINO Medication Reconciliation Report [facility] VisitID: [id number] [address] [place] [address] 30y, M Registration Date/Time: 08/27/2016 Weight: 104.3 kg Height/Length: 71 in. BMI: 32.1 ALLERGIES: Sulfa Antibiotics The patient's Home Medications are listed below: NONE. The source(s) of the original Home Medication information: Not obtained. The following Medications were given to the patient in the Emergency Department: IV NS IV Fluids bolus 0, then 1000 mL/hr, administered: 08/27/2016 6:05:00 AM Zofran [IVP] IVP 4 mg, administered: 08/27/2016 6:06:00 AM Levaquin [PO] PO 750 mg, administered: 08/27/2016 7:02:00 AM The following Medications were prescribed to the patient: Zofran (orally disintegrating tablets) 4 mg: take 1 orally every 8 hours as needed for nausea and vomiting. Dispense ten (10). No refill. Substitution is permissible. -- Neymar Ortiz Dr. Cipro 500 mg: take 1 tab orally every 12 hours for 5 days. No refills. Substitution is permissible.(disp 10 tabs) -- Neymar Ortiz Dr.
== END 2016-08-27 07:10 | disposition home or self-care (01) ==
LOC: ED SRH 05:23
DX: R11.2 Nausea with vomiting, unspecified (principal); R19.7 Diarrhea, unspecified; R10.84 Generalized abdominal pain; Z88.2 Allergy status to sulfonamides
CPT/HCPCS: 90004; 90100; 92235; 95059

== ENCOUNTER 2016-10-14 23:57 | Emergency (ER) | payer BC ==
--- NOTE | 2016-10-15 01:25 | ED NURSING NOTES ---
Clinical Report - Nurses [facility] [address] [place] [address] 10/15/2016 0:00 [id number] Triage time 00:Oct 15 2016. Acuity: LEVEL 3. Chief Complaint: INJURY TO RIGHT ANKLE. SEPSIS SCREEN: Sepsis Screen: negative. Negative (no infection suspected/documented). JIL COMA SCORE: Jil Coma Scale: 15- eyes open spontaneously (4); best verbal response- oriented x 4 (5); best motor response- obeys commands (6). --00:11 Daisy Wheeler 00:08 10/15/16. BP: 130/78. HR: 90. RR: 20. O2 saturation: 97%. Temp: 98 F (oral). Pain level now: 11/10. --00:11 Daisy Wheeler. Weight: 102 kg stated. Height/Length: 71 inches Per Patient. BMI: 31.4. --00:11 Daisy Wheeler. Medications None. --00:09 Daisy Wheeler. Medication/allergy information source: the patient. --00:11 Daisy Wheeler. Allergies Sulfa Antibiotics. --00:10 Daisy Wheeler. History Arrived by private vehicle. Historian: patient and family. Accompanied by family. Primary physician (none). Occurred at home. Mechanism of injury: a single moderate blow. ( Patient reports he was lifting up his AT/Quad when it landed on his right foot. He reports pain and swelling as well as limited range of motion. He reports he took ibuprofen and waited for swelling to subside but it has not. He reports this happened at home in his garage four hours ago.). He has had trouble walking. PAST MEDICAL HX: Tetanus status: up-to-date. Immunizations: up-to-date. SOCIAL HX: Former smoker, end date 2014 (chews tobacco). Occasional alcohol use. History of drug use: marijuana. No infectious disease exposure. ABUSE ASSESSMENT: No report of abuse. FALL RISK ASSESSMENT: Fall risk assessment completed. No fall risk identified. NUTRITIONAL RISK ASSESSMENT: The nutritional risk assessment revealed no deficiencies. FUNCTIONAL ASSESSMENT: Functional assessment: no impairments noted. LEARNING NEEDS ASSESSMENT: The learning needs assessment revealed no barriers. SKIN INTEGRITY ASSESSMENT: Skin integrity risk assessment completed. No skin integrity risk identified. --00:11 Daisy Wheeler. PROBLEMS: Diarrhea. Vomiting. Abdominal Pain. --00:10 Daisy Wheeler. ADDITIONAL SURGERIES: Shoulder Surgery. --00:10 Daisy Wheeler. Interventions ID band on patient. To treatment room. --00:11 Daisy Wheeler. PHYSICAL ASSESSMENT To room via wheelchair. GENERAL / NEURO / PSYCH: Oriented X 4. Alert. Appears in no acute distress. EXTREMITIES: Limited ROM present. Capillary refill is less than 2 seconds in the extremities. Extremity pulses are within normal limits. Pain with weight bearing. Right ankle: tenderness and swelling. Limited ROM secondary to pain and swelling. SKIN: Skin is warm and dry. --00:11 Daisy Wheeler. NURSING PROGRESS NOTES Cold pack applied. Extremity elevated. Warming measures: blanket applied. Reassurance given to the patient. Two patient identifiers checked. Call light placed in reach. Side rails up x 1. Bed placed in lowest position. Brakes of bed on. Patient ready for evaluation- chart flagged and ED physician notified. --00:12 Daisy Wheeler ( radiology at bedside). --00:35 Daisy Wheeler 01:30 10/15/2016 Hydrocodone-APAP (Hydrocodone-Acetaminophen) PO 5/325 mg Tablets 2 tab given. Allergies verified, confirmed 5 rights and sedative warning given to the patient and patient's family. --01:30 Daisy Wheeler 01:40. Stirrup lower extremity splint applied to right ankle by tech. Distal pulses intact, sensation intact and motor within normal limits. Patient fit with new crutches. Crutch training performed by tech; the patient demonstrated proper use. --01:46 Fernanda Garcia. DISPOSITION / DISCHARGE Condition at departure: stable. The goals identified in the patient's plan of care were met. --01:31 Daisy Wheeler 01:30 10/15/16. BP: 126/75. HR: 90. RR: 20. O2 saturation: 98% on room air. Temp: deferred. Pain level now: 11/10. --01:31 Daisy Wheeler 01:38 10/15/16. No learning barriers present. Discharge instructions provided and reviewed with the patient and spouse. Reviewed warnings (Do not drive while taking sedative medications). Reviewed medication(s) side effects, precautions, dosing and course information. Prescription(s) given to the patient. Reviewed crutch walking and splint care instructions. Reviewed need for increased fluid intake. Patient and spouse verbalized understanding. Written instructions provided in Zambian. ( Ice and elevate the affected extremity. Take anti-inflammatory for swelling. Follow up with [facility] in three days. Contact information provided for [facility]. Limited weight bearing for three days. Patient and spouse verbalized understanding and had no additional questions at this time.). The patient was discharged by the physician. He was discharged home and accompanied by spouse. He left the Emergency Department on crutches and via private vehicle. Spouse driving. --01:38 Daisy Wheeler. Locked/Released at 10/15/2016 2:06 by Daisy Wheeler,
--- NOTE | 2016-10-15 01:25 | ED ORDER SUMMARY ---
..... Patient: KIMBER PALOMINO OrderSheet [facility] VisitID: [id number] [place] [address] 30y, M Registration Date/Time: 10/15/2016 ORDER SHEET Weight: 102.0 kg (stated) Allergies: Sulfa Antibiotics GENERAL ORDERS: Ankle 3 or 4V Right Urgent (00:22 10/15/2016 HSoule per protocol) (Ack 0:28 AMcQuoid ER Tech1) (0:37 GUnger) Splint (LE) (Right) (Air Splint) (01:24 10/15/2016 Fabien GREENE) (Ack 1:24 HSoule) (1:30 HSoule) Crutches (:10/15/2016 Fabien GREENE) (Ack 1:24 HSoule) (1:30 HSoule) MEDICATION ORDERS: Hydrocodone-APAP PO 10/650 mg (NOW) (01:24 10/15/2016 Fabien GREENE) (Ack 1:24 HSoule) (1:30 HSoule) IV FLUIDS: ORDER SHEET NOTES: [Electronically signed by Daisy Wheeler (02:06 10/15/2016)] [Electronically signed by Anthony Tejada MD (20:49 10/18/2016)] [Electronically locked/signed by Daisy Wheeler (02:06 10/15/2016)]
--- NOTE | 2016-10-15 01:25 | ED CLINICAL REPORT ---
Clinical Report - Physicians/Mid Levels [facility] [address] [place] [address] 10/15/2016 0:00 [id number] Time Seen: 01:16 Oct 15 2016. Arrived- By private vehicle. Historian- patient. CPT: ER phys charges level 3 (#[id number]). HISTORY OF PRESENT ILLNESS Chief Complaint: Injury to the right ankle. The injury happened just prior to arrival. The patient sustained a direct blow. Occurred at home. ( Occurred at home. Mechanism of injury: a single moderate blow. ( Patient reports he was lifting up his AT/Quad when it landed on his right foot. He reports pain and swelling as well as limited range of motion. He reports he took ibuprofen and waited for swelling to subside but it has not. He reports this happened at home in his garage four hours ago.). He has had trouble walking.). Patient is experiencing moderate pain. No other injury. REVIEW OF SYSTEMS The patient complains of pain on weight bearing. He has had swelling. No weakness, numbness, suspected foreign body or skin laceration. All systems otherwise negative, except as recorded above. PAST HISTORY See nurses notes. Diarrhea. Vomiting. Abdominal Pain. ADDITIONAL SURGERIES: Shoulder Surgery. Medications: None. Allergies: Sulfa Antibiotics. SOCIAL HISTORY Former smoker. Occasional alcohol use. History of drug use: marijuana. ADDITIONAL NOTES The nursing notes have been reviewed. PHYSICAL EXAM Vital Signs: 10/15/2016 00:08 BP: 130/78. HR: 90. RR: 20. O2 saturation: 97%. Temp: 98 F. Pain level now: 8/10. Appearance: Appears to be in pain. Patient in moderate distress. Head: Head atraumatic. ENT: Pharynx normal. Neck: Normal inspection. C-spine non-tender. CVS: Normal heart rate and rhythm. Heart sounds normal. Pulses normal. Respiratory: No respiratory distress. Breath sounds normal. Chest nontender. Abdomen: No visible injury. Soft and nontender. Bowel sounds normal. Back: No tenderness. Skin: Skin intact. Skin warm. Extremities: Right lateral ankle: tenderness, swelling and ecchymosis of the lateral ligaments and lateral malleolus. Limited ROM secondary to pain (diminished plantar flexion and inversion). Joint effusion present. Neurovascular intact distally. No ligamentous laxity present. No deformity. Gait: Gait not tested due to pain. Neuro, Vascular and Tendons: Vascular status intact. Sensation intact. Motor intact. Neuro: Oriented X 3. No motor deficit. No sensory deficit. LABS, X-RAYS, AND EKG X-Rays: Right ankle negative. PROGRESS AND PROCEDURES Splint Application: Air splint applied to right ankle. Splint applied by tech with direct supervision by me. Reassessed extremity following splint application. Neurovascular intact. Follow-up recommended within 7 days. Fitted for crutches by the tech. Course of Care: Vicodin 2 po Patient is stable. Patient/family counseled. Disposition: Discharged. Condition: stable. CLINICAL IMPRESSION Sprain of the calcaneofibular and talofibular ligament of the right ankle. Contusion to the right ankle. INSTRUCTIONS Apply ice for 15-20 minutes three times a day for one days. Use crutches until better. Wear air splint until released. Elevate affected areas above chest level today, for one days. No weight bearing on right leg for three days until better. Warnings: SEDATIVE MEDICATION: You were given sedative medication during your visit. Do not drive or operate dangerous machinery. Prescription Medications: Hydrocodone/APAP 5mg/325mg: take 1 to 2 orally every 6 hours as needed for pain. Dispense fifteen (15). No refills. Ibuprofen 600mg tablets: take 1 tablet orally every 8 hours as needed for pain. Dispense thirty (30). No refills. Understanding of the discharge instructions verbalized by patient. Discharge instructions reviewed with and understanding was verbalized by software trainer. Follow-up with: [facility], , , [address], , [place], [address] Follow up in one week. Call for an appointment. (Electronically signed by Anthony Tejada MD 10/18/2016 20:49)
--- NOTE | 2016-10-15 01:25 | ED ORDER SUMMARY ---
..... Patient: KIMBER PALOMINO OrderSheet [facility] VisitID: [id number] [place] [address] 30y, M Registration Date/Time: 10/15/2016 ORDER SHEET Weight: 102.0 kg (stated) Allergies: Sulfa Antibiotics GENERAL ORDERS: Ankle 3 or 4V Right Urgent (00:22 10/15/2016 HSoule per protocol) (Ack 0:28 AMcQuoid ER Tech1) (0:37 GUnger) Splint (LE) (Right) (Air Splint) (01:24 10/15/2016 Fabien GREENE) (Ack 1:24 HSoule) (1:30 HSoule) Crutches (:10/15/2016 Fabien GREENE) (Ack 1:24 HSoule) (1:30 HSoule) MEDICATION ORDERS: Hydrocodone-APAP PO 10/650 mg (NOW) (01:24 10/15/2016 Fabien GREENE) (Ack 1:24 HSoule) (1:30 HSoule) IV FLUIDS: ORDER SHEET NOTES: [Electronically signed by Daisy Wheeler (02:06 10/15/2016)] [Electronically signed by Anthony Tejada MD (20:49 10/18/2016)] [Electronically locked/signed by Daisy Wheeler (02:06 10/15/2016)]
--- NOTE | 2016-10-15 01:25 | ED CLINICAL REPORT ---
Clinical Report - Physicians/Mid Levels [facility] [address] [place] [address] 10/15/2016 0:00 [id number] Time Seen: 01:16 Oct 15 2016. Arrived- By private vehicle. Historian- patient. CPT: ER phys charges level 3 (#[id number]). HISTORY OF PRESENT ILLNESS Chief Complaint: Injury to the right ankle. The injury happened just prior to arrival. The patient sustained a direct blow. Occurred at home. ( Occurred at home. Mechanism of injury: a single moderate blow. ( Patient reports he was lifting up his AT/Quad when it landed on his right foot. He reports pain and swelling as well as limited range of motion. He reports he took ibuprofen and waited for swelling to subside but it has not. He reports this happened at home in his garage four hours ago.). He has had trouble walking.). Patient is experiencing moderate pain. No other injury. REVIEW OF SYSTEMS The patient complains of pain on weight bearing. He has had swelling. No weakness, numbness, suspected foreign body or skin laceration. All systems otherwise negative, except as recorded above. PAST HISTORY See nurses notes. Diarrhea. Vomiting. Abdominal Pain. ADDITIONAL SURGERIES: Shoulder Surgery. Medications: None. Allergies: Sulfa Antibiotics. SOCIAL HISTORY Former smoker. Occasional alcohol use. History of drug use: marijuana. ADDITIONAL NOTES The nursing notes have been reviewed. PHYSICAL EXAM Vital Signs: 10/15/2016 00:08 BP: 130/78. HR: 90. RR: 20. O2 saturation: 97%. Temp: 98 F. Pain level now: 8/10. Appearance: Appears to be in pain. Patient in moderate distress. Head: Head atraumatic. ENT: Pharynx normal. Neck: Normal inspection. C-spine non-tender. CVS: Normal heart rate and rhythm. Heart sounds normal. Pulses normal. Respiratory: No respiratory distress. Breath sounds normal. Chest nontender. Abdomen: No visible injury. Soft and nontender. Bowel sounds normal. Back: No tenderness. Skin: Skin intact. Skin warm. Extremities: Right lateral ankle: tenderness, swelling and ecchymosis of the lateral ligaments and lateral malleolus. Limited ROM secondary to pain (diminished plantar flexion and inversion). Joint effusion present. Neurovascular intact distally. No ligamentous laxity present. No deformity. Gait: Gait not tested due to pain. Neuro, Vascular and Tendons: Vascular status intact. Sensation intact. Motor intact. Neuro: Oriented X 3. No motor deficit. No sensory deficit. LABS, X-RAYS, AND EKG X-Rays: Right ankle negative. PROGRESS AND PROCEDURES Splint Application: Air splint applied to right ankle. Splint applied by tech with direct supervision by me. Reassessed extremity following splint application. Neurovascular intact. Follow-up recommended within 7 days. Fitted for crutches by the tech. Course of Care: Vicodin 2 po Patient is stable. Patient/family counseled. Disposition: Discharged. Condition: stable. CLINICAL IMPRESSION Sprain of the calcaneofibular and talofibular ligament of the right ankle. Contusion to the right ankle. INSTRUCTIONS Apply ice for 15-20 minutes three times a day for one days. Use crutches until better. Wear air splint until released. Elevate affected areas above chest level today, for one days. No weight bearing on right leg for three days until better. Warnings: SEDATIVE MEDICATION: You were given sedative medication during your visit. Do not drive or operate dangerous machinery. Prescription Medications: Hydrocodone/APAP 5mg/325mg: take 1 to 2 orally every 6 hours as needed for pain. Dispense fifteen (15). No refills. Ibuprofen 600mg tablets: take 1 tablet orally every 8 hours as needed for pain. Dispense thirty (30). No refills. Understanding of the discharge instructions verbalized by patient. Discharge instructions reviewed with and understanding was verbalized by fur repairer. Follow-up with: [facility], , , [address], , [place], [address] Follow up in one week. Call for an appointment. (Electronically signed by Anthony Tejada MD 10/18/2016 20:49)
--- NOTE | 2016-10-15 06:28 | DIAGNOSTIC IMAGING REPORT ---
PROCEDURE: XR ANKLE 3 OR 4 VIEWS - RIGHT INDICATION: TRAUMA/INJURY TECHNIQUE: Four views. COMPARISON: None. FINDINGS: There is marked soft tissue swelling over the lateral malleolus. Dystrophic ossification along the lateral tibia is most likely related to prior syndesmosis injury. The rest of the osseous structures and joint spaces are normal. IMPRESSION: 1. Marked soft tissue swelling. 2. Dystrophic ossification of the distal fibula may be related to prior syndesmosis injury.
--- NOTE | 2016-10-18 20:50 | ED MAR SUMMARY ---
..... Medication Administration Record [facility] [address] [place] [address] Patient: KIMBER PALOMINO Visit ID: [id number] 30y, M Weight: 102.0 kg Height/Length: 71 in BMI: 31.4 ALLERGIES: Sulfa Antibiotics Given 01:30 10/15/2016 Daisy Wheeler, Medication Administered: HYDROCODONE-APAP [PO] (HYDROCODONE-ACETAMINOPHEN), Dose: 2 tab 5/325 mg Tablets PO. Medication Ordered: Hydrocodone-APAP PO 10/650 mg (NOW).
--- NOTE | 2016-10-18 20:50 | ED MED RECONCILIATION SUMMARY ---
Patient: KIMBER PALOMINO Medication Reconciliation Report [facility] VisitID: [id number] [place] [address] 30y, M Registration Date/Time: 10/15/2016 Weight: 102.0 kg Height/Length: 71 in. BMI: 31.4 ALLERGIES: Sulfa Antibiotics The patient's Home Medications are listed below: NONE. The source(s) of the original Home Medication information: patient The following Medications were given to the patient in the Emergency Department: Hydrocodone-APAP [PO] PO 2 tab, administered: 10/15/2016 1:30:00 AM The following Medications were prescribed to the patient: Hydrocodone/APAP 5mg/325mg: take 1 to 2 orally every 6 hours as needed for pain. Dispense fifteen (15). No refills. -- Anthony Tejada MD Ibuprofen 600mg tablets: take 1 tablet orally every 8 hours as needed for pain. Dispense thirty (30). No refills. -- Anthony Tejada MD
--- NOTE | 2016-10-18 20:50 | ED MAR SUMMARY ---
..... Medication Administration Record [facility] [address] [place] [address] Patient: KIMBER PALOMINO Visit ID: [id number] 30y, M Weight: 102.0 kg Height/Length: 71 in BMI: 31.4 ALLERGIES: Sulfa Antibiotics Given 01:30 10/15/2016 Daisy Wheeler, Medication Administered: HYDROCODONE-APAP [PO] (HYDROCODONE-ACETAMINOPHEN), Dose: 2 tab 5/325 mg Tablets PO. Medication Ordered: Hydrocodone-APAP PO 10/650 mg (NOW).
--- NOTE | 2016-10-18 20:50 | ED MED RECONCILIATION SUMMARY ---
Patient: KIMBER PALOMINO Medication Reconciliation Report [facility] VisitID: [id number] [place] [address] 30y, M Registration Date/Time: 10/15/2016 Weight: 102.0 kg Height/Length: 71 in. BMI: 31.4 ALLERGIES: Sulfa Antibiotics The patient's Home Medications are listed below: NONE. The source(s) of the original Home Medication information: patient The following Medications were given to the patient in the Emergency Department: Hydrocodone-APAP [PO] PO 2 tab, administered: 10/15/2016 1:30:00 AM The following Medications were prescribed to the patient: Hydrocodone/APAP 5mg/325mg: take 1 to 2 orally every 6 hours as needed for pain. Dispense fifteen (15). No refills. -- Anthony Tejada MD Ibuprofen 600mg tablets: take 1 tablet orally every 8 hours as needed for pain. Dispense thirty (30). No refills. -- Anthony Tejada MD
--- NOTE | 2016-10-18 20:50 | ED DISCHARGE INSTRUCTIONS ---
Patient: KIMBER PALOMINO General Instructions [facility] VisitID: [id number] [address], [place] [address] 30y, M Registration Date/Time: 10/15/2016 Sprain of the calcaneofibular and talofibular ligament of the right ankle. Contusion to the right ankle. INSTRUCTIONS Apply ice for 15-20 minutes three times a day for one days. Use crutches until better. Wear air splint until released. Elevate affected areas above chest level today, for one days. No weight bearing on right leg for three days until better. Warnings: SEDATIVE MEDICATION: You were given sedative medication during your visit. Do not drive or operate dangerous machinery. Prescription Medications: Hydrocodone/APAP 5mg/325mg: take 1 to 2 orally every 6 hours as needed for pain. Dispense fifteen (15). No refills. Ibuprofen 600mg tablets: take 1 tablet orally every 8 hours as needed for pain. Dispense thirty (30). No refills. Understanding of the discharge instructions verbalized by patient. Discharge instructions reviewed with and understanding was verbalized by convention services manager. Follow-up with: [facility], , , [address], , [place], [id number] Follow up in one week. Call for an appointment. ADDITIONAL INFORMATION Sprain, Ankle,With X-Ray A sprain is an injury to the ligaments or capsule that holds a joint together. There are no broken bones. Most sprains take from four to six weeks to heal. If the ligament is completely torn (severe sprain), it can take several months to recover. Mild to moderate sprains may be treated with an elastic wrap or an in-shoe splint to provide support and prevent re-injury. A mild sprain may not require any additional support. A severe sprain may require surgery to repair. Home care The following guidelines will help you care for your injury at home: Stay off the injured leg as much as possible until you can walk on it without pain. If you have a lot of pain with walking, crutches or a walker may be prescribed. (These can be rented or purchased at many pharmacies and surgical or orthopedic supply stores). Follow your doctor's advice regarding when to begin bearing weight on that leg. Keep your leg elevated to reduce pain and swelling. When sleeping, place a pillow under the injured leg. When sitting, support the injured leg so it is level with your waist. This is very important during the first 48 hours. Apply an ice pack (ice cubes in a plastic bag, wrapped in a towel) over the injured area for 20 minutes every 12 hours the first day. You can place the ice pack directly over the splint/cast. If you were given a boot, open it to apply the ice pack. Continue with ice packs 34 times a day for the next two days, then as needed for the relief of pain and swelling. You may use acetaminophen or ibuprofen to control pain, unless another pain medicine was prescribed. If you have chronic liver or kidney disease or ever had a stomach ulcer or GI bleeding, talk with your doctor before using these medicines. You may return to sports after healing, when you can run without pain. A sprained ankle is at risk for re-injury during the first six weeks. During that time, protect your ankle with an in-shoe splint that prevents tilting of your ankle from side to side. This is very important if you do active work or play sports during that time. Follow-up care Any X-rays you had today dont show any broken bones, breaks, or fractures. Sometimes fractures dont show up on the first X-ray. Bruises and sprains can sometimes hurt as much as a fracture. These injuries can take time to heal completely. If your symptoms dont improve or they get worse, talk with your doctor. You may need a repeat X-ray. When to seek medical care Get prompt medical attention if any of the following occur: The plaster cast or splint gets wet or soft The fiberglass cast or splint gets wet and does not dry for 24 hours Pain or swelling increases, or redness appears Toes become cold, blue, numb or tingly Re-injure your ankle Contusion,Soft Tissue You have a CONTUSION, which is a bruise with swelling and some bleeding under the skin. There are no broken bones. This injury takes a few days to a few weeks to heal. Home Care: 1) Keep the injured part elevated to reduce pain and swelling. This is especially important during the first 48 hours. 2) Make an ice pack (ice cubes in a plastic bag, wrapped in a towel) and apply for 20 minutes every 1-2 hours the first day. Continue this 3-4 times a day until the pain and swelling goes away. 3) You may use acetaminophen (Tylenol) or ibuprofen (Motrin, Advil) to control pain, unless another pain medicine was prescribed. [ NOTE : If you have chronic liver or kidney disease or ever had a stomach ulcer or GI bleeding, talk with your doctor before using these medicines.] Follow Up with your doctor or this facility if you are not improving within the next THREE days. [NOTE: If X-rays were taken, they will be reviewed by a radiologist. You will be notified of any new findings that may affect your care.] Get Prompt Medical Attention if any of the following occur: -- Pain or swelling increases -- Injured arm or leg becomes cold, blue, numb or tingly -- Redness, warmth or drainage from the skin Crutch Walking Crutch Adjustment Make sure the crutches you use are adjusted to fit you. When you stand, there should be room to fit 2-3 fingers between the top of the crutch and your armpit. Your elbow should be slightly bent when holding the hand monorail helper. Crutch Walking: Place the crutches forward 12" in front of and 6" to the side of your feet. Lean your weight forward as you push down on the handgrips. Your weight should be on your hands and yourstrong leg, not your armpits . Let your body swing through, landing on the strong leg. Advance the crutches forward again. The crutch and the injured leg should move together. Going Up Steps: ("Up with the good") With both crutches on the same step as your feet, push down on the handgrips. Balancing with very light pressure on the weak leg, let your hands support your weight as you raise your strong leg onto the next higher step. Transfer all your weight to your strong leg (still bent) as you move the crutches up to the next step alongside the strong leg. With your weight evenly balanced on the two crutches and your strong leg, straighten your strong knee as you raise the weak leg up to the next step. Going Down Steps: ("Down with the bad") With both crutches on the same step as your feet, push down on the handgrips. With your weight evenly balanced on the two crutches and your strong leg, bend your strong knee as you lower the weak leg down to the next step. Let your strong leg support you (still bent) as you move the crutches down alongside the weak leg. Transfer your weight to your hands, balancing with very light pressure on the weak leg as you lower your strong leg alongside your weak leg. Aircast Traditional splints and casts for the foot and ankle protect the injury by preventing movement at the joints. However, many injuries heal better and faster if the injured joint can be moved, while protected at the same time. This is the reason for using an Aircast. There are two common type of AirCasts: 1) Air-Stirrup ankle splint This is often used to treat ankle sprains. It contains padded air cells in a plastic frame that fits into your shoe. This allows you to walk while preventing the ankle joint from rolling in or out causing re-injury. Ankle sprains can take 4-6 weeks to heal. Persons with severe injuries or over age 60 may require more time to heal. During that time, you are prone to re-injury by suddenly twisting your ankle again while the ligaments are still weak. When treating a sprain, the Air-Stirrup splint should be worn whenever walking for at least four weeks, or as long as you continue to have ankle pain. You should continue to wear it at least 6 weeks whenever running, playing sports or any activity where there is increased risk of re-injury. Talk to your doctor for specific advice about the treatment of your condition. 2) SP-Walker boot This is a short boot that provides support and protection to the foot and ankle while allowing you to walk. It contains padded air cells that provide compression and help circulation. It is used for both foot and ankle injuries - both sprains and minor fractures. Talk to your doctor for specific advice about the treatment of your condition. Air-Stirrup and SP-Walker are trademarks of [employer]. For more information about their products, see [email or web address]. You have been given the following additional information: Sprain, Ankle, With X-Ray Contusion, Soft Tissue Crutch Walking Aircast Splint And Boot No weight bearing on right leg for three days until better. (Electronically signed by Anthony Tejada MD 10/18/2016 20:49)
== END 2016-10-15 01:40 | disposition home or self-care (01) ==
LOC: ED SRH 23:57
DX: S93.411A Sprain of calcaneofibular ligament of right ankle, initial encounter (principal); S93.491A Sprain of other ligament of right ankle, initial encounter; W22.8XXA Striking against or struck by other objects, initial encounter; Y93.89 Activity, other specified; Y99.9 Unspecified external cause status; Y92.009 Unspecified place in unspecified non-institutional (private) residence as the place of occurrence of the external cause; Z88.2 Allergy status to sulfonamides